=== PATIENT | male | born 1980 | race African-American/Black ===

== ENCOUNTER 2017-01-27 21:29 | Emergency (ER) | payer MEDICAID ==
[~2017-01-27] VITALS: Ht 180.3 cm; Wt 136.0 kg
[~2017-01-27 21:29] MED LIST: ALBUTEROL; HYDR-519
[2017-01-28] MEDS ORDERED: KETOROLAC 30MG/ML VIAL IM SCH (03:15)
[2017-01-28] MEDS ORDERED: ONDANSETRON 4MG ODT PO SCH (03:15)
[2017-01-28 06:51] VITALS: BP 142/98
== END 2017-01-28 07:19 | disposition home or self-care (01) ==
LOC: ER 22:30
DX: S82.842A Displaced bimalleolar fracture of left lower leg, initial encounter for closed fracture (principal); R03.0 Elevated blood-pressure reading, without diagnosis of hypertension; J45.909 Unspecified asthma, uncomplicated; Z88.8 Allergy status to other drugs, medicaments and biological substances; W18.2XXA Fall in (into) shower or empty bathtub, initial encounter; Y93.E1 Activity, personal bathing and showering; Y92.89 Other specified places as the place of occurrence of the external cause; Y99.8 Other external cause status
CPT/HCPCS: 29515; 73590; 73610; 73630; 96372; 99284; J1885; Q0162; Z7610

== ENCOUNTER 2017-07-16 03:38 | Emergency (ER) | payer MEDICAID ==
[~2017-07-16] VITALS: Ht 180.3 cm; Wt 143.0 kg
[2017-07-16] MEDS ORDERED: IPRATROPIUM BROMIDE (0.02%) 0.5MG/2.5ML NEB HHN STA (04:13)
[2017-07-16] MEDS ORDERED: ALBUTEROL (0.083%) 2.5MG/3ML NEB HHN STA (04:13)
[2017-07-16] MEDS ORDERED: PREDNISONE 20MG TABLET PO STA (04:13)
[2017-07-16] MEDS ORDERED: IBUPROFEN 600MG TABLET PO ONE (05:15)
[2017-07-16 06:20] VITALS: BP 149/94
== END 2017-07-16 06:23 | disposition home or self-care (01) ==
LOC: ER 03:38
DX: J45.901 Unspecified asthma with (acute) exacerbation (principal); F17.210 Nicotine dependence, cigarettes, uncomplicated; E66.9 Obesity, unspecified; Z98.890 Other specified postprocedural states; Z91.041 Radiographic dye allergy status; Z91.013 Allergy to seafood
CPT/HCPCS: 94640; 99283; 99406; J7512; J7611

== ENCOUNTER 2017-07-22 04:58 | Emergency (ER) | payer MEDICAID ==
[~2017-07-22] VITALS: Ht 180.3 cm; Wt 137.0 kg
[2017-07-22] MEDS ORDERED: ALBUTEROL (0.083%) 2.5MG/3ML NEB HHN STA (05:35)
[2017-07-22] MEDS ORDERED: IPRATROPIUM BROMIDE (0.02%) 0.5MG/2.5ML NEB HHN STA (05:35)
[2017-07-22] MEDS ORDERED: PREDNISONE 20MG TABLET PO STA (05:35)
[2017-07-22] MEDS ORDERED: ALBUTEROL (0.5%) 2.5MG/0.5ML NEB HHN ONE (06:17)
[2017-07-22 06:57] VITALS: BP 159/80
== END 2017-07-22 06:59 | disposition home or self-care (01) ==
LOC: ER 04:58
DX: J45.901 Unspecified asthma with (acute) exacerbation (principal); G47.30 Sleep apnea, unspecified; Z87.891 Personal history of nicotine dependence; Z88.8 Allergy status to other drugs, medicaments and biological substances
CPT/HCPCS: 94640; 99283; J7512; J7611; Z7610

== ENCOUNTER 2018-06-23 11:59 | Emergency (ER) | payer MEDICAID ==
[~2018-06-23] VITALS: Ht 180.3 cm; Wt 128.0 kg
[~2018-06-23 11:59] MED LIST changes: +ALBU6.7H9 INH; -ALBUTEROL; -HYDR-519; +HYDR-519 PO; +P20 PO; +TRAM50TA3 PO
[2018-06-23] MEDS ORDERED: ALBUTEROL (0.083%) 2.5MG/3ML NEB HHN STA (12:47)
[2018-06-23] MEDS ORDERED: METHYLPREDNISOLONE SOD SUCC 125 MG/2 ML VIAL IV STA (12:47)
[2018-06-23] MEDS ORDERED: MAGNESIUM 2 G PREMIX 50 ML IV STA (12:47)
[2018-06-23] MEDS: IPRATROPIUM BROMIDE (0.02%) 0.5MG/2.5ML NEB HHN STA ×2 (13:03→13:23)
[2018-06-23 13:31] LABS: BASOPHILS % 0.5 % (0.0-2.0); EOSINOPHILS % 4.2 % (0.0-5.0); HEMATOCRIT. 46.3 % (42.0-52.0); HEMOGLOBIN. 15.1 g/dL (14.0-18.0); LYMPHOCYTES % 28.4 % (20.0-50.0); MEAN CORPUSCULAR HEMOGLOBIN 29.8 pg (28.0-32.0); MEAN CORPUSCULAR VOLUME 91.2 fL (80.0-94.0); MEAN PLATELET VOLUME 7.6 fl (7.4-10.4); MONOCYTES % 9.5 % (2.0-8.0); NEUTROPHILS % 57.4 % (40.0-76.0); PLATELET 267 x1000/uL (130-400); RED BLOOD CELL COUNT 5.07 mill/uL (4.7-6.1); RED CELL DISTRIBUTION WIDTH 15.2 % (11.6-14.6)
[2018-06-23 13:35] LABS: CHLORIDE 106 mEq/L (98-107)
[2018-06-23 15:00] VITALS: BP 155/81
== END 2018-06-23 15:24 | disposition home or self-care (01) ==
LOC: ER 11:59
DX: J45.901 Unspecified asthma with (acute) exacerbation (principal); I10 Essential (primary) hypertension; Z91.041 Radiographic dye allergy status; Z91.013 Allergy to seafood; Z87.828 Personal history of other (healed) physical injury and trauma; Z98.890 Other specified postprocedural states
CPT/HCPCS: 36415; 71045; 80053; 85025; 93005; 94644; 96365; 96375; 99285; J2930; J3475; J7611

== ENCOUNTER 2018-08-21 16:52 | Emergency (ER) | payer MEDICAID ==
[~2018-08-21] VITALS: Ht 180.3 cm; Wt 138.0 kg
[2018-08-21] MEDS ORDERED: ALBUTEROL (0.083%) 2.5MG/3ML NEB HHN STA (17:32)
[2018-08-21] MEDS ORDERED: METHYLPREDNISOLONE SOD SUCC 125 MG/2 ML VIAL IM STA (17:32)
[2018-08-21] MEDS ORDERED: IPRATROPIUM BROMIDE (0.02%) 0.5MG/2.5ML NEB HHN STA (17:32)
[2018-08-21 18:50] VITALS: BP 144/89
== END 2018-08-21 18:58 | disposition home or self-care (01) ==
LOC: ER 16:52
DX: J45.901 Unspecified asthma with (acute) exacerbation (principal); F41.9 Anxiety disorder, unspecified; Z91.041 Radiographic dye allergy status
CPT/HCPCS: 94640; 99283; J7611

== ENCOUNTER 2018-11-29 21:32 | Inpatient (IN) | payer MEDICAID ==
[~2018-11-29] VITALS: Ht 180.3 cm; Wt 136.1 kg
[2018-11-29] MEDS ORDERED: ALBUTEROL (0.083%) 2.5MG/3ML NEB HHN STA (21:38)
[2018-11-29] MEDS ORDERED: METHYLPREDNISOLONE SOD SUCC 125 MG/2 ML VIAL IV STA (21:38)
[2018-11-29] MEDS ORDERED: IPRATROPIUM BROMIDE (0.02%) 0.5MG/2.5ML NEB HHN STA (21:38)
[2018-11-29 22:08] LABS: BASOPHILS % 0.4 % (0.0-2.0); EOSINOPHILS % 2.6 % (0.0-5.0); HEMOGLOBIN. 15.5 g/dL (14.0-18.0); LYMPHOCYTES % 20.5 % (20.0-50.0); MEAN CORPUSCULAR HEMOGLOBIN 29.6 pg (28.0-32.0); MEAN CORPUSCULAR VOLUME 91.7 fL (80.0-94.0); MEAN PLATELET VOLUME 7.9 fl (7.4-10.4); MONOCYTES % 7.7 % (2.0-8.0); NEUTROPHILS % 68.8 % (40.0-76.0); PLATELET 268 x1000/uL (130-400); RED BLOOD CELL COUNT 5.23 mill/uL (4.7-6.1); RED CELL DISTRIBUTION WIDTH 15.1 % (11.6-14.6)
[2018-11-29 22:11] LABS: CHLORIDE 106 mEq/L (98-107)
[2018-11-29] MEDS ORDERED: SODIUM CHLORIDE 0.9% 1,000 ML IV ONE (22:45)
[2018-11-29] MEDS ORDERED: MAGNESIUM 2 G PREMIX 50 ML IV ONE (23:45)
[2018-11-29] MEDS ORDERED: ALBUTEROL (0.083%) 2.5MG/3ML NEB HHN ONE (23:45)
[2018-11-30] MEDS ORDERED: ACETAMINOPHEN 325MG TABLET PO PRN ×2 (00:45→01:45)
[2018-11-30] MEDS ORDERED: SODIUM CHLORIDE 0.9% 1,000 ML IV ONE (00:45)
[2018-11-30] MEDS ORDERED: ONDANSETRON HCL 4MG/2ML INJ IV PRN (01:45)
[2018-11-30] MEDS ORDERED: IPRATROPIUM/ALBUTEROL 0.5-3(2.5)MG/3ML NEB NEB PRN (01:45)
[2018-11-30] MEDS ORDERED: DOCUSATE SODIUM 100MG CAPSULE PO PRN (01:45)
[2018-11-30] MEDS ORDERED: ENOXAPARIN 40MG/0.4ML SYR SUBCUT SCH (01:45)
[2018-11-30] MEDS ORDERED: MAGNESIUM/ALUMINUM HYDROXIDE/SIMETHICONE 30ML UDC PO PRN (01:45)
[2018-11-30 02:27] LABS: CHLORIDE 105 mEq/L (98-107)
[2018-11-30 03:25] VITALS: BP 173/123
[2018-11-30] MEDS: IPRATROPIUM/ALBUTEROL 0.5-3(2.5)MG/3ML NEB NEB SCH ×5 (04:14→20:08)
[2018-11-30] MEDS: CLONIDINE 0.1MG TABLET PO PRN ×2 (04:34→13:35)
[2018-11-30 05:33] LABS: BG BASE EXCESS -0.1 mmol/L (-2.0-2.0); BG CARBOXYHEMOGLOBIN 0.9 % (0.5-1.5); BG DEOXYHEMOGLOBIN 7.5 % (0.0-5.0); BG FRACTION INSPIRED OXYGEN 28; BG HCO3 ACT 25.8 mmol/L (22.0-26.0); BG METHEMOGLOBIN 0.5 % (0.0-1.5); BG OXYGEN SATURATION 92.4 % (92.0-98.5); BG OXYHEMOGLOBIN 91.1 % (94.0-97.0); BG PCO2 46.1 mmHg (35.0-45.0); BG PH 7.365 (7.350-7.450); BG SAMPLE SITE RIGHT BRACHIAL; BG TOTAL HEMOGLOBIN 15.4 g/dL (12.0-18.0); BG VENT MODE NASAL CANNULA
[2018-11-30] MEDS: METHYLPREDNISOLONE SOD SUCC 40 MG/ML VIAL IV SCH ×3 (06:31→22:52)
[2018-11-30] MEDS ORDERED: PANTOPRAZOLE 40MG DR TABLET PO SCH (07:10)
[2018-11-30 08:00] VITALS: BP 205/127
[2018-11-30] MEDS: ENOXAPARIN 40MG/0.4ML SYR SUBCUT SCH ×2 (08:56→22:51)
[2018-11-30] MEDS: HYDRALAZINE 20MG/ML VIAL IV PRN ×2 (08:56→18:14)
[2018-11-30] MEDS ORDERED: PNEUMOCOCCAL 23-VAL P-SAC VAC 0.5 ML IM ONE (09:00)
[2018-11-30 09:44] LABS: *BENZODIAZEPINES SCREEN URINE NEGATIVE (NEGATIVE); METHADONE URINE SCREEN NEGATIVE (NEGATIVE); OPIATES URINE SCREEN NEGATIVE (NEGATIVE)
[2018-11-30 09:45] LABS: CANNABINOID URINE SCREEN NEGATIVE (NEGATIVE)
[2018-11-30 09:47] VITALS: BP 183/127
[2018-11-30 09:47] LABS: *BARBITURATES SCREEN URINE NEGATIVE (NEGATIVE)
[2018-11-30 09:48] LABS: *COCAINE SCREEN URINE NEGATIVE (NEGATIVE)
[2018-11-30 09:51] LABS: *AMPHETAMINES SCREEN URINE PRESUMTIVE POSITIVE (NEGATIVE)
[2018-11-30 10:52] LABS: PHENCYCLIDINE URINE SCREEN NEGATIVE (NEGATIVE)
[2018-11-30 11:31] LABS: HEMOGLOBIN. 15.1 g/dL (14.0-18.0); MEAN CORPUSCULAR HEMOGLOBIN 29.9 pg (28.0-32.0); MEAN CORPUSCULAR VOLUME 91.3 fL (80.0-94.0); PLATELET 260 x1000/uL (130-400); RED BLOOD CELL COUNT 5.03 mill/uL (4.7-6.1); RED CELL DISTRIBUTION WIDTH 15.3 % (11.6-14.6)
[2018-11-30 11:46] LABS: LDL CHOLESTEROL 137 mg/dL (5-100)
[2018-11-30 11:48] LABS: CREATINE KINASE 813 IU/L (39-308)
[2018-11-30 11:52] LABS: HDL CHOLESTEROL 72 mg/dL (40-59)
[2018-11-30 11:53] LABS: CREATINE KINASE MB FRACTION 15.4 ng/mL (0.5-3.6)
[2018-11-30 12:00] VITALS: BP 170/100
[2018-11-30 16:00] VITALS: BP 200/120
[2018-11-30 17:12] LABS: PLATELET ESTIMATE NORMAL
[2018-11-30] MEDS: LORATADINE 10MG TABLET PO SCH (18:13)
[2018-11-30] MEDS: MONTELUKAST SODIUM 10MG TABLET PO SCH (18:14)
[2018-11-30 20:44] LABS: CREATINE KINASE MB FRACTION 24.7 ng/mL (0.5-3.6)
[2018-11-30] MEDS: FLUTICASONE PROPIONATE 50MCG/SPRAY BOTTLE BOTHNSTRLS SCH (22:52)
[2018-11-30] MEDS: FAMOTIDINE 20MG/2ML VIAL IV SCH (22:53)
[2018-12-01] VITALS: BP 152/82
[2018-12-01] MEDS: IPRATROPIUM/ALBUTEROL 0.5-3(2.5)MG/3ML NEB NEB SCH ×6 (00:34→21:19)
[2018-12-01 04:00] VITALS: BP 154/88
[2018-12-01] MEDS: METHYLPREDNISOLONE SOD SUCC 40 MG/ML VIAL IV SCH ×2 (06:10→13:50)
[2018-12-01 08:00] VITALS: BP 180/110
[2018-12-01] MEDS: LORATADINE 10MG TABLET PO SCH (08:59)
[2018-12-01] MEDS: CLONIDINE 0.1MG TABLET PO PRN (09:00)
[2018-12-01] MEDS: ENOXAPARIN 40MG/0.4ML SYR SUBCUT SCH ×2 (09:00→22:00)
[2018-12-01] MEDS: FAMOTIDINE 20MG/2ML VIAL IV SCH ×2 (09:00→21:59)
[2018-12-01] MEDS: FLUTICASONE PROPIONATE 50MCG/SPRAY BOTTLE BOTHNSTRLS SCH ×2 (09:00→21:59)
[2018-12-01 12:00] VITALS: BP 160/110
[2018-12-01] MEDS: GUAIFENESIN/CODEINE 100-10MG/5ML UDC PO PRN ×2 (13:56→22:09)
[2018-12-01 16:00] VITALS: BP 170/110
[2018-12-01] MEDS: PREDNISONE 20MG TABLET PO SCH (18:26)
[2018-12-01] MEDS: MONTELUKAST SODIUM 10MG TABLET PO SCH (18:26)
[2018-12-01 20:00] VITALS: BP 163/106
[2018-12-02] VITALS: BP 182/116
[2018-12-02] MEDS: IPRATROPIUM/ALBUTEROL 0.5-3(2.5)MG/3ML NEB NEB SCH ×5 (00:36→15:45)
[2018-12-02] MEDS: HYDRALAZINE 20MG/ML VIAL IV PRN ×2 (00:46→08:44)
[2018-12-02 03:52] VITALS: BP 173/116
[2018-12-02] MEDS: CLONIDINE 0.1MG TABLET PO PRN (05:30)
[2018-12-02 08:00] VITALS: BP 171/114
[2018-12-02] MEDS: PREDNISONE 20MG TABLET PO SCH (08:44)
[2018-12-02] MEDS: ENOXAPARIN 40MG/0.4ML SYR SUBCUT SCH (08:44)
[2018-12-02] MEDS: FAMOTIDINE 20MG/2ML VIAL IV SCH (08:44)
[2018-12-02] MEDS: LORATADINE 10MG TABLET PO SCH (08:44)
[2018-12-02] MEDS: GUAIFENESIN/CODEINE 100-10MG/5ML UDC PO PRN (08:55)
[2018-12-02] MEDS: FLUTICASONE PROPIONATE 50MCG/SPRAY BOTTLE BOTHNSTRLS SCH (08:56)
[2018-12-02 09:15] LABS: BASOPHILS % 0.3 % (0.0-2.0); HEMATOCRIT. 47.5 % (42.0-52.0); HEMOGLOBIN. 15.2 g/dL (14.0-18.0); LYMPHOCYTES % 8.9 % (20.0-50.0); MEAN CORPUSCULAR HEMOGLOBIN 29.7 pg (28.0-32.0); MEAN CORPUSCULAR VOLUME 92.7 fL (80.0-94.0); MEAN PLATELET VOLUME 7.7 fl (7.4-10.4); MONOCYTES % 5.1 % (2.0-8.0); NEUTROPHILS % 85.7 % (40.0-76.0); PLATELET 287 x1000/uL (130-400); RED BLOOD CELL COUNT 5.12 mill/uL (4.7-6.1); RED CELL DISTRIBUTION WIDTH 15.7 % (11.6-14.6)
[2018-12-02 09:22] LABS: CHLORIDE 103 mEq/L (98-107)
[2018-12-02] MEDS ORDERED: GUAIFENESIN 600MG ER TABLET PO SCH (11:15)
[2018-12-02 12:00] VITALS: BP 167/85
[2018-12-02 13:28] VITALS: BP 167/85
== END 2018-12-02 16:44 | disposition home or self-care (01) | DRG 133 ==
LOC: EDBEDREQTM 11-30 00:40 → EDBEDREQ 11-30 00:40 → ER 11-30 00:48 → 8WST 11-30 00:50 → ENRESERV 11-30 00:58
PROVIDERS: ADMIT Internal Medicine; ATTEND Internal Medicine
DX: J96.00 Acute respiratory failure, unspecified whether with hypoxia or hypercapnia (principal); J45.901 Unspecified asthma with (acute) exacerbation; E66.9 Obesity, unspecified; F17.210 Nicotine dependence, cigarettes, uncomplicated; E78.5 Hyperlipidemia, unspecified; F90.9 Attention-deficit hyperactivity disorder, unspecified type; R74.0 Nonspecific elevation of levels of transaminase and lactic acid dehydrogenase [LDH]; R73.9 Hyperglycemia, unspecified; Z88.5 Allergy status to narcotic agent; Z91.013 Allergy to seafood; Z71.6 Tobacco abuse counseling; Z68.41 Body mass index [BMI] 40.0-44.9, adult
CPT/HCPCS: 36415; 36600; 71045; 80048; 80061; 80076; 80305; 82375; 82550; 82553; 82805; 83036; 83735; 84443; 84484; 87070; 93005; 93970; 94640; 99285; J0360; J1650; J2920; J2930; J3475; J3490; J7030; J7512; J7611; J7620